=== PATIENT | male | born 1975 | race Caucasian/White ===

== ENCOUNTER 2020-11-18 15:03 | Inpatient (IN) | payer OTHER ==
[~2020-11-18] VITALS: Ht 182.9 cm; Wt 101.7 kg
[~2020-11-18 15:03] MED LIST: DICYCLOMINE HCL20 MG PO; HYDROXYZINE PAM50 MG PO; ONDANSETRON4 MG PO; SINEMET 25-100M1 TAB PO; THERA1 TAB PO; VALIUM2 MG PO; ZOLOFT50 MG PO
[2020-11-18 16:00] VITALS: BP 123/67
[2020-11-18 17:03] LABS: BASO % 0.8 % (0.0-1.0); EOS # 0.3 10*3/uL (0.0-0.4); EOS % 4.8 % (1.0-4.0); HEMATOCRIT 36.4 % (42.0-52.0); LYMPH # 1.3 10*3/uL (1.3-4.4); LYMPH % 24.6 % (27.0-41.0); MEAN CELL VOLUME 92.6 fl (80.0-94.0); MEAN CORPUSCULAR HGB 32.1 pg (27.0-31.0); MEAN CORPUSCULAR HGB CONC 34.6 g/dl (33.0-37.0); MEAN PLATELET VOLUME 8.8 fl (9.6-12.3); MONO # 0.5 10*3/uL (0.1-1.0); MONO % 9.2 % (3.0-9.0); NEUT # 3.2 10*3/uL (2.3-7.9); NEUT % 60.4 % (47.0-73.0); PLATELET COUNT AUTOMATED 277 10*3/uL (130-400); RED BLOOD COUNT 3.93 10*6/uL (4.50-5.90); RED CELL DISTRI WIDTH 12.2 % (0-14.5); WHITE BLOOD COUNT 5.2 10*3/uL (4.8-10.8)
[2020-11-18 17:05] VITALS: BP 142/88
[2020-11-18 17:21] LABS: ALBUMIN 3.8 gm/dl (3.1-4.5); ALKALINE PHOSPHATASE 62 U/L (45-117); BUN 10 mg/dl (7-24); CHLORIDE 106 mmol/L (98-107); CREATININE 1.36 mg/dL (0.70-1.30); ETHYL ALCOHOL < 3.0 mg/dl (<3); POTASSIUM 3.8 mmol/L (3.5-5.1); SGOT/AST 59 IU/L (3-35); SGPT/ALT 66 U/L (12-78); SODIUM 141 mmol/L (136-145); TOTAL PROTEIN 6.9 gm/dL (6.4-8.2)
[2020-11-18 18:00] VITALS: BP 142/88
[2020-11-18] MEDS ORDERED: TRAZODONE100 MG PO (19:59)
[2020-11-18] MEDS ORDERED: NEURONTIN800 MG PO (19:59)
[2020-11-18 20:00] VITALS: BP 123/67
[2020-11-19] VITALS (7 sets, daily range): BP systolic 76–114; BP diastolic 46–78
[2020-11-19 00:56] LABS: BILIRUBIN Negative (Negative); BLOOD Negative (Negative); CLARITY Clear (Clear); COLOR Yellow (Yellow); GLUCOSE Negative (Negative); KETONE Negative (Negative); LEUKO ESTERASE Negative (Negative); NITRITE Negative (Negative); PH 6.5 (4.5-8.0); SPECIFIC GRAVITY 1.015 (1.001-1.030)
[2020-11-19 01:06] LABS: URINE AMPHETAMINES < 1000 (1000ng/ml); URINE BARBITURATES < 200 (200ng/ml); URINE BENZODIAZEPINES < 200 (200ng/ml); URINE CANNABINOIDS (THC) > 50 (50ng/ml); URINE COCAINE > 300 (300ng/ml); URINE METHADONE < 300 (300ng/ml); URINE OPIATES < 300 (300ng/ml)
[2020-11-19 01:07] LABS: URINE PHENCYCLIDINE < 25 (25ng/ml)
[2020-11-19 01:19] LABS: BACTERIA TRACE; EPITHELIAL CELLS 0-2; RBC 0-2 rbc/hpf (0-2); WBC 0-2 wbc/hpf (0-5)
[2020-11-20] VITALS: BP 117/67
[2020-11-20 07:07] LABS: ALBUMIN 3.2 gm/dl (3.1-4.5); BUN 11 mg/dl (7-24); CHLORIDE 108 mmol/L (98-107); CREATININE 1.37 mg/dL (0.70-1.30); POTASSIUM 3.7 mmol/L (3.5-5.1); SGOT/AST 27 IU/L (3-35); SGPT/ALT 47 U/L (12-78); SODIUM 143 mmol/L (136-145)
[2020-11-20 07:08] LABS: ALKALINE PHOSPHATASE 52 U/L (45-117); TOTAL PROTEIN 5.9 gm/dL (6.4-8.2)
[2020-11-20 08:00] VITALS: BP 99/62
[2020-11-20 12:00] VITALS: BP 104/61
[2020-11-20 16:00] VITALS: BP 101/53
[2020-11-20 20:00] VITALS: BP 116/75
[2020-11-21] VITALS: BP 122/76
[2020-11-21 08:00] VITALS: BP 115/73
[2020-11-21 12:00] VITALS: BP 122/71
== END 2020-11-21 13:26 | disposition home or self-care (01) | DRG 773 ==
LOC: 5E 15:03
PROVIDERS: Internal Medicine; ADMIT Internal Medicine; ATTEND Internal Medicine
DX: F11.23 Opioid dependence with withdrawal (principal); F32.9 Major depressive disorder, single episode, unspecified; F17.210 Nicotine dependence, cigarettes, uncomplicated; F41.9 Anxiety disorder, unspecified; D64.9 Anemia, unspecified; R73.9 Hyperglycemia, unspecified; R74.01 Elevation of levels of liver transaminase levels; N17.0 Acute kidney failure with tubular necrosis; Z71.6 Tobacco abuse counseling